=== PATIENT | male | born 2000 | race Caucasian/White ===

== ENCOUNTER 2020-01-29 02:17 | Emergency (ER) | payer OTHER ==
[~2020-01-29] VITALS: Ht 180.3 cm; Wt 65.5 kg
[2020-01-29 02:19] VITALS: BP_DIAS 88
--- NOTE | 2020-01-29 02:36 | NUR ---
ERP AT BEDSIDE FOR ASSESS
[2020-01-29] MEDS ORDERED: METHOCARBAMOL 750 MG TABLET ONE (02:45)
[2020-01-29] MEDS ORDERED: DIPHENHYDRAMINE 25 MG CAPSULE ONE (02:45)
[2020-01-29] MEDS ORDERED: ACETAMINOPHEN 325 MG TABLET ONE (02:45)
[2020-01-29] MEDS ORDERED: DIPHENHYDRAMINE 25 MG CAPSULE PO ONE (03:00)
[2020-01-29] MEDS ORDERED: ACETAMINOPHEN 325 MG TABLET PO ONE (03:00)
[2020-01-29] MEDS ORDERED: METHOCARBAMOL 750 MG TABLET PO ONE (03:00)
[2020-01-29 03:22] VITALS: BP_SYST 135
--- NOTE | 2020-01-29 03:23 | NUR ---
DC HOME WITH INSTRUCT, PT VERBALIZES UNDERSTANDING OF INSTRUC TA NDFU. TO RETURN TO ER IF WORSE OR CONERNR.S
== END 2020-01-29 03:28 | disposition home or self-care (01) ==
LOC: ED 03:22
DX: G44.219 Episodic tension-type headache, not intractable (principal); M54.2 Cervicalgia
CPT/HCPCS: 99284; Q0163